=== PATIENT | male | born 1955 | race Two or more races ===

== ENCOUNTER → 2021-02-26 01:13 | Outpatient (CLI) | payer MEDICARE, SELFPAY ==
[2021-02-26 19:38] LABS: SARS-CoV-2 RNA PCR Negative
== END ==
PROVIDERS: PCP Family Medicine; Visit Provider Internal Medicine Gastroenterology
DX: Z01.812 Encounter for preprocedural laboratory examination (principal); Z20.822 Contact with and (suspected) exposure to COVID-19
CPT/HCPCS: C9803; U0003; U0005

== ENCOUNTER 2021-03-01 01:26 | Day surgery (SDC) | payer MEDICARE, SELFPAY ==
[2021-03-01 08:30] VITALS: BP 132/83; PULSE 74; RESP 18; TEMP 36.3; O2SAT 100; BMI 29.1
[2021-03-01] MEDS: LACTATED RINGERS 1,000 ML 150 ML IV CONT (08:38)
--- NOTE | 2021-03-01 09:16 | P.PNAN_ITS ---
Anes - Initial Pre Proc Eval Procedure: Operation Date: 03/01/21 09:30 Proposed Procedures p Screening Colonoscopy - Mikhail Lepe MD Date/Time: 03/01/21 09:16 Surgeon: Mikhail Lepe MD Pre Op Diagnosis: hx of colon polyps Patient Data Age: 65 Gender: M Height: 6 ft 4 in Weight: 108.7 kg Last Vital Signs Temp 97.3 F L 03/01/21 08:30 Pulse 74 03/01/21 08:30 Resp 18 03/01/21 08:30 BP 132/83 03/01/21 08:30 Pulse Ox 100 03/01/21 08:30 Allergies Allergy/AdvReac Type Severity Reaction Status Date / Time No Known Allergies Allergy Unknown Other Verified 03/01/21 08:29 Home Medications Medication Instructions Recorded Confirmed Type sildenafil (pulm.hypertension) 20 mg PO PRN PRN 02/18/21 02/18/21 History [Revatio] Patient hx anesthesia problems: none Family hx anesthesia problems: none FOR[facility]LY [facility], [facility]–1983 Social History Social History Smoking packs per day: 0.5 Smoking cigarettes per day: 10.0 Smoking status: Former smoker Tobacco type: cigarettes Alcohol intake: current Drinks per week: 3 Substance use: never Substance use type: does not use Living arrangements: with family Spiritual care concerns: No Anes - Eval Final PreProcedure Day of Procedure 03/01/21 09:16 Patient weight: overweight Heart: regular rate and rhythm Lungs: clear to auscultation Airway: Mallampati scale class II Neurological: alert and oriented Last oral intake: >/= 8 hours ASA classification: II Emergent: no Anesthetic plan: proceed Anesthesia type and monitoring: general GIVS and standard monitoring Informed Consent: The patient's anesthetic plan and its attendant risks and benefits were discussed with the patient/family/POA. Questions were solicited and answers provided to the satisfaction of the patient/family/POA.
--- NOTE | 2021-03-01 09:18 | PM.HPGS ---
History of Present Illness History of Present Illness Consent: Risks, benefits, and alternatives have been discussed and questions answered. Patient agrees to proceed with procedure. Chief complaint: hx of colon polyps Narrative: Armand Salvador is a 65 year old male with colon polyp 3 years ago Review of Systems Constitutional: Constitutional: Denies headache(s) and Denies weakness Eyes: Eyes: Denies blurry vision ENT: Reports Normal hearing present, Denies headache(s) and Denies neck pain Cardiovascular: Cardiovascular: Denies chest pain and Denies dyspnea Respiratory: Respiratory: Denies dyspnea Gastrointestinal: Gastrointestinal: Reports no additional gastrointestinal complaints Genitourinary: Genitourinary: Denies dysuria Musculoskeletal: Musculoskeletal: Denies neck pain Integumentary/Breasts: Skin/Breast: Denies dry skin Neurologic: Reports Normal hearing present, Denies headache(s) and Denies weakness Psychiatric: Psychiatric: Denies anxiety Endocrine: Endocrine: Denies change in body appearance Hematologic/Lymphatic: Hematologic/Lymphatic: Denies easy bleeding Allergic/Immunologic: Allergic/Immunologic: Denies urticaria PMFSH Past Medical History Medical History (Updated 03/01/21 @ 09:19 by Mikhail Lepe MD) Colon polyp Social History Social History Smoking packs per day: 0.5 Smoking cigarettes per day: 10.0 Smoking status: Former smoker Tobacco type: cigarettes Alcohol intake: current Drinks per week: 3 Substance use: never Substance use type: does not use Living arrangements: with family Spiritual care concerns: No Meds Home Medications and Allergies Home Medications Medication Instructions Recorded Confirmed Type sildenafil (pulm.hypertension) 20 mg PO PRN PRN 02/18/21 02/18/21 History [Revatio] Allergies Allergy/AdvReac Type Severity Reaction Status Date / Time No Known Allergies Allergy Unknown Other Verified 03/01/21 08:29 Vital Signs Vital Signs - 24 hr 03/01/21 08:30 Temperature 97.3 F L Pulse Rate 74 Respiratory Rate 18 Blood Pressure 132/83 Pulse Oximetry 100 Exam Const: General: comfortable and no acute distress HENMT: General nose exam: Normal nares present Eyes: General: appearance normal, both eyes and all related structures Neck: Neck: no JVD Resp: Auscultation: clear to auscultation bilaterally Cardio: Rate: regular rate Rhythm: regular rhythm GI: Inspection: non-distended GI Palp: Yes Soft to palpation Skin: General skin exam: normal color Neuro: General: gait normal Speech: normal speech Extrem: General: normal to inspection Psych: Mental Status: mental status grossly normal Assessment and Plan Assessment and plan (1) Colon polyp: Code(s): K63.5 - Polyp of colon Status: Acute Assessment and Plan: colonoscopy
[2021-03-01 09:51] VITALS: BP 102/74; PULSE 77; RESP 22; O2SAT 98
[2021-03-01 10:01] VITALS: BP 108/75; PULSE 73; RESP 18; O2SAT 98
[2021-03-01 10:11] VITALS: BP 127/80; PULSE 69; RESP 20; O2SAT 99
== END 2021-03-01 10:20 | disposition home or self-care (01) ==
PROVIDERS: PCP Family Medicine; Visit Provider Internal Medicine Gastroenterology
PROC: 0DJD8ZZ Inspection of Lower Intestinal Tract, Via Natural or Artificial Opening Endoscopic (ICD-10-PCS; CPT 45378; principal; 2021-03-01 09:30)
DX: Z12.11 Encounter for screening for malignant neoplasm of colon (principal); D12.2 Benign neoplasm of ascending colon; D12.3 Benign neoplasm of transverse colon; Z86.010 Personal history of colon polyps; K57.30 Diverticulosis of large intestine without perforation or abscess without bleeding; K64.8 Other hemorrhoids; K63.5 Polyp of colon; Z87.891 Personal history of nicotine dependence
CPT/HCPCS: 45385; 88305; C9803; J2704; J7120; U0003; U0005